=== PATIENT | female | born 1940 | race Caucasian/White ===

== ENCOUNTER 2023-06-27 15:32 | Emergency (ER) | payer OTHER ==
[~2023-06-27] VITALS: Ht 154.9 cm; Wt 63.5 kg
[2023-06-27 15:48] VITALS: BP_SYST 126; PULSE 73; RESP 20; TEMP 97.9; O2SAT 98
[2023-06-27] MEDS ORDERED: CEPH250C PO (19:55)
[2023-06-27 20:23] VITALS: BP_SYST 148; PULSE 80; RESP 18; O2SAT 97
== END 2023-06-27 20:23 | disposition home or self-care (01) ==
LOC: SED 15:32
DX: S60.221A Contusion of right hand, initial encounter (principal); L08.9 Local infection of the skin and subcutaneous tissue, unspecified; Z79.899 Other long term (current) drug therapy; X58.XXXA Exposure to other specified factors, initial encounter; Y93.89 Activity, other specified; Y92.89 Other specified places as the place of occurrence of the external cause; Y99.8 Other external cause status
CPT/HCPCS: 99283